=== PATIENT | male | born 1960 ===

== ENCOUNTER 2024-08-01 10:00 | Day surgery (SDC) | payer BC, SELFPAY ==
[2024-08-01 10:50] VITALS: BP 145/99; PULSE 101; RESP 20; TEMP 36.5; O2SAT 98
[2024-08-01] MEDS: Tropicam./Phenyleph. (1/2.5%) 5 ML BTL OD ×3 (10:57→11:07)
--- NOTE | 2024-08-01 11:29 | ANES.PREOP_ITS ---
General Info Date of Service Date Performed: 08/01/24 Height: 5 ft 8 in Weight: 99.79 kg Body Mass Index (BMI): 33.4 Surgical Procedure: Operation Date: 08/01/24 12:40 Proposed Procedure Side Surgeon p Cataract Extraction with IOL Implant Right Octavio Cat MD Meds Allergies and Home Medications Allergies Allergy/AdvReac Type Severity Reaction Status Date / Time hydrochlorothiazide AdvReac Intermediate Other (See Verified 08/01/24 10:49 Comment) Home Medication ?Medication ?Instructions ?Recorded amlodipine 10 mg tablet 10 mg PO DAILY 07/30/24 aspirin 81 mg tablet,delayed 81 mg PO DAILY 07/30/24 release (Adult Low Dose Aspirin) levothyroxine 50 mcg capsule 50 mcg PO DAILY 07/30/24 losartan 100 mg tablet 100 mg PO DAILY 07/30/24 omega 8-amr-vyc-fish oil 100 1 cap PO DAILY 07/30/24 mg-160 mg-1,000 mg capsule (Fish Oil) omeprazole 20 mg capsule,delayed 20 mg PO DAILY 07/30/24 release pravastatin 40 mg tablet 40 mg PO DAILY 07/30/24 Current Visit Medications: Current Medications Generic Name Dose Route Start Last Admin Trade Name Freq PRN Reason Stop Dose Admin Acetaminophen 1,000 mg 08/01/24 06:00 Acetaminophen 500 Mg Tab PO 08/31/24 05:59 Q4H PRN PRN Balanced Salt Solution 500 ml 08/01/24 06:00 Balanced Salt Soln.-Plus 500 Ml Bag OP 08/31/24 05:59 DIRECTED [facility] Miscellaneous Medication 0 ml 08/01/24 06:00 Prednisolone 1%, Moxifloxacin 0.5%, Bromfenac 0.09% 5.6ml Btl OD 08/31/24 05:59 DIRECTED [facility] Miscellaneous Medication 0 ml 08/01/24 06:00 08/01/24 11:07 Tropicam./Phenyleph. 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 Gallstone pancreatitis Impaired fasting glucose GERD (gastroesophageal reflux disease) HLD (hyperlipidemia) Essential hypertension Calcium pyrophosphate deposition disease (CPPD) Surgical History Surgical History (Updated 08/01/24 @ 10:49 by Carol Arshad RN) History of surgery right arm Hx of appendectomy Hx of colonoscopy History of cholecystectomy Tobacco Smoking/Tobacco Use Status: Former Tobacco Use Alcohol Alcohol Intake: current Alcohol intake frequency: a few times a month Substance Use Substance use: Never Substance use type: does not use Vital Signs and Lab Results Vital Signs Most Recent Vital Signs in EMR: Most Recent Vital Signs Temp Pulse Resp BP Pulse Ox 36.5 C 101 H 20 145/99 H 98 08/01/24 10:50 08/01/24 10:50 08/01/24 10:50 08/01/24 10:50 08/01/24 10:50 Vital Signs Comment Vital Signs Comment:: Repeat HR 89 Lab Results Blood Type / Crossmatch: No Data to Display Complete Blood Count: No Data to Display Complete Metabolic Panel: No Data to Display Liver Function Panel: No Data to Display Coagulation Panel: No Data to Display Cardiac Panel: No Data to Display Arterial Blood Gas: No Data to Display Venous Blood Gas: No Data to Display Pancreas Panel: No Data to Display Thyroid Panel: No Data to Display Infectious Disease: No Data to Display Blood Cultures: No Data to Display Toxicology Panel: No Data to Display Anesthesia Assessment and Plan Anesthesia History Personal History: No History of Anesthesia Complications Family History: No Family History of Anesthesia Complications Exercise Tolerance Exercise Tolerance: Metabolic Equivalents>4 Pertinent Negatives Pertinent Negatives: No Symptoms of GERD, No Major Cardiovascular Symptoms or Complaints and No Major Pulmonary Symptoms or Complaints Cardiac & Pulmonary Exam Cardiac Exam: Normal S1/S2 Heart Sounds Pulmonary Exam: Clear Bilateral Breath Sounds Implantable Cardiac Device Does patient have a Pacemaker or an ICD?: No Airway Exam Known Difficult Airway: No Mallampati Class: 3 Mouth Opening: Normal (> 3cm) Thyromental Distance: Greater than 3 cm Neck Range of Motion: Full ROM Neck Circumference: Normal Teeth Condition: Removable Dentures/Plates Upper ASA Classification ASA Score: ASA 2 Emergency Case?: No NPO Status NPO Status: NPO Clears >2 hours, Solids >8 hours Anesthesia Plan Resuscitation Status: Full Code Anesthesia Technique: MAC Anesthesia Airway Planned: Natural Airway Monitors Used: Standard Monitors
[2024-08-01 11:48] VITALS: BMI 33.4
[2024-08-01] MEDS: Tetracaine 0.5% 4 ML BTL OD (12:02)
[2024-08-01] MEDS: Povidone-Iodine Ophth 30 ML BTL (12:03)
[2024-08-01] MEDS: Duovisc Viscoelastic System EACH 1 EACH (12:08)
[2024-08-01] MEDS: Balanced Salt Soln.-PLUS 500 ML BAG OP (12:08)
[2024-08-01] MEDS: Lidocaine 1% Pres-Free 5 ML VIAL (12:09)
[2024-08-01] MEDS: Trypan Blue 0.06% 0.5 ML SYR (12:10)
[2024-08-01] MEDS: Prednisolone 1%, Moxifloxacin 0.5%, Bromfenac 0.09% 5.6ML BTL OD (12:33)
[2024-08-01 13:10] VITALS: BP 136/91; PULSE 80; RESP 18; TEMP 36.3; O2SAT 94
--- NOTE | 2024-08-01 13:14 | W.PM.DSUDISC ---
Date of service: 08/01/24 Discharge Plan Disposition Patient Disposition: Home Discharge Details Attending Provider: Octavio Cat Primary Care Provider: Unknown,Unknown Home Meds and New Rx's Prescriptions: No Action amlodipine 10 mg tablet 10 mg PO DAILY omeprazole 20 mg capsule,delayed release(DR/EC) 20 mg PO DAILY losartan 100 mg tablet 100 mg PO DAILY pravastatin 40 mg tablet 40 mg PO DAILY levothyroxine 50 mcg capsule 50 mcg PO DAILY aspirin [Adult Low Dose Aspirin] 81 mg tablet,delayed release (DR/EC) 81 mg PO DAILY Fish Oil 100-160-1,000 mg capsule 1 cap PO DAILY Discharge Instructions Stand Alone Forms: [facility] Post-Op Cataract, [address] ([facility]) Discharge Orders Discharge Orders: Discharge Order (Routine); Ordered 08/01/24 Ordered By: Octavio Cat DS: Diagnosis Discharge Diagnosis (1) Nuclear age-related cataract, right eye: Status: Resolved (2) History of vitrectomy: Status: Chronic (3) High myopia, right eye: Status: Chronic
--- NOTE | 2024-08-01 13:15 | ROE_ITS ---
Operative Note Operative Note PRE-OP DIAGNOSIS: Nuclear cataract, right eye High myopia, status post pars plana vitrectomy, right eye POST-OP DIAGNOSIS: same PROCEDURE: Cataract extraction using phacoemulsification with intraocular lens implant, right eye SURGEON: Octavio Cat ANESTHESIA TYPE: Local By Surgeon and MAC Refer to Anesthesia Record ESTIMATED BLOOD LOSS: 0 PATHOLOGY: none sent COMPLICATIONS: None Patient was transported to: same day Patient's condition: stable Implants: Case Clareon [id number] Indications: Progressive decreased vision due to cataract, right eye Procedure Description: CATARACT SURGERY OPERATIVE REPORT PREOPERATIVE DIAGNOSIS: Nuclear cataract, right eye High myopia/status post pars plana vitrectomy, right eye POSTOPERATIVE DIAGNOSIS: Same OPERATION: Cataract extraction using phacoemulsification with posterior chamber intraocular lens implant, right eye. Implantation of capsular tension ring, right eye IOL: IOL Behavioral Medical Director/Model: Case Clareon [id number] IOL Power: + 9.5 diopters IOL Serial Number: [id number] Optic Diameter: 6.0mm Haptic/Overall Diameter: 13.0mm PHACO INFO: Case TidePoolurion Vision System with OZil and Active Fluidics Cumulative Dispersed Energy (CDE): 14.41 seconds SURGEON: Octavio Cat MD, ANISH ANESTHESIA: Monitored Anesthesia Care (MAC), with local sub-tenon's anesthetic infiltration COMPLICATIONS: None SPECIMENS: None INDICATIONS FOR PROCEDURE: The patient is a 63-year-old male with a history of high myopia with axial length over 27.0 mm, who previously underwent pars plana vitrectomy with membrane peeling for a macular pucker in February 2023. He has now developed a dense nuclear cataract in the right eye and desires cataract surgery in attempt to improve and maximize his vision. The option of cataract surgery was offered to the patient and he wished to proceed. See office notes for detailed information. PROCEDURE: The correct surgical eye was identified and marked as the right eye and the pupil was dilated in the preoperative area using mydriatics and cycloplegics. The dilated pupil size was 8.0 mm. Oral sedation was administered in the form of an Imprimis MKO Melt (midazolam 3mg/ketamine 25mg/ondansetron 2mg). The patient was brought to the operating room where cardiopulmonary monitoring was instituted and surgical time-out was performed, confirming the correct operative eye and IOL power. Topical anesthesia was administered and ophthalmic povidone-iodine 5% was instil led into the conjunctival fornices. The morgan-ocular area was prepped with Betadine 10% solution and draped in the usual sterile fashion for intraocular surgery, including an aperture drape. A Tegaderm transparent film dressing was cut in half and used to cover the lashes and lid margins. Care was taken to sequester the lashes and lid margins under the Tegaderm dressing. A lid speculum was placed between the lids of the operative eye and the Case LuxOR Revalia operating microscope was maneuvered into position. Ashish scissors were then used to make a conjunctival buttonhole approximately 6mm posterior to the limbus in the inferonasal quadrant. Blunt dissection was carried out to expose bare sclera, and a blunt-tipped sub-tenon?s anesthesia cannula was introduced and passed posteriorly along the globe where non- preserved plain lidocaine was injected into posterior sub-Tenon?s space. A sideport knife was used to make a paracentesis port. VisionBlue was injected into the anterior chamber and allowed to sit for 30 seconds. Intraocular phenylephrine/lidocaine was injected into the anterior chamber. The anterior chamber was then filled with viscoelastic. A keratome knife was used to construct a two--plane clear corneal tunnel extending 2.0mm into clear cornea. A flap was raised on the anterior capsule and capsulorhexis forceps were used to complete a continuous curvilinear capsulorhexis of 5.5 mm. The capsular bag was noted to be very thin and mobile, with significant zonular laxity. Balanced salt solution was then used to perform cortical cleaving hydrodissection and nuclear hydrodelineation until the lens could be freely rotated within the capsular bag. Viscoelastic was then injected under the anterior capsular rim, inferior temporally, inferior nasally, and superior nasally. The 1.0 mm sideport knife was then used to create steeply angled corneal incisions for placement of MST capsule support hooks. 3 capsule support hooks were then carefully placed under the anterior capsular rim to support the capsular bag due to the long axial length and history of vitrectomy. The lens nucleus was then disassembled and removed within the capsular bag and iris plane using phacoemulsification. The anterior chamber was hyper deep, even with capsule support hooks in place. Residual cortical material was removed using the I/A handpiece. The posterior capsule was carefully polished to remove as much residual lens epithelial cells as safely possible. The underside of the anterior capsular rim was also polished for 360 degrees. The capsular bag was then inflated and the anterior chamber deepened with cohesive viscoelastic. A Morcher Type 15A capsular tension ring was then injected into the capsular bag without difficulty. The lens implant described above was inserted into the capsular bag using the Case Autonome Injector. A Kuglen hook was used to dial the IOL into position. The capsular support hooks were then removed. Residual viscoelastic was then removed first from posterior to the IOL, then from the anterior chamber using the I/A handpiece. The lens implant was noted to center nicely within the capsular bag. The incisions were stromally hydrated, and the anterior chamber was reformed using BSS. Miostat was then injected into the anterior chamber and the pupil was noted to come down around. Then 0.5cc of moxifloxacin 1.0mg/ml were injected into the capsular bag and anterior chamber. The incisions were checked with a Weck spear and found to be secure. Several drops of ophthalmic povidone-iodine 5% were then applied to the eye followed by two drops of combination steroid/NSAID/antibiotic solution. The drapes were removed and a clear plastic protective eye shield was placed over the eye. The patient was then returned to Same Day Surgery in stable condition. Date of Procedure: 08/01/24
[2024-08-01 13:38] VITALS: BP 131/89; PULSE 82; RESP 18; TEMP 36.4; O2SAT 95
--- NOTE | 2024-08-01 17:56 | W.ANESPOSTOP ---
Postoperative Evaluation Date, Time and Location Date Performed: 08/01/24 Time Performed: 13:12 Patient Location: Day Surgery Unit Vital Signs Most Recent Imported Vital Signs: Most Recent Vital Signs Temp Pulse Resp BP Pulse Ox 36.4 C L 82 18 131/89 95 08/01/24 13:38 08/01/24 13:38 08/01/24 13:38 08/01/24 13:38 08/01/24 13:38 Pain Score Most Recent Pain Score: Most Recent Pain Score Pain Level 0 08/01/24 13:38 Assessment Mental Status: Awake (Alert & Oriented to Patient Baseline) Airway and Respiratory Function: Patent airway with normal (patient baseline) respiratory exam Cardiovascular Function: Hemodynamically Stable Hydration Status: Adequately Hydrated Nausea & Vomiting: No Nausea or Vomiting Pain: Pt. Denies Any Pain Peripheral Nerve Block: Patient did not receive a nerve block
== END 2024-08-01 13:41 | disposition home or self-care (01) ==
LOC: SUR 10:01
PROVIDERS: Visit Provider Ophthalmology
PROC: (CPT 66982; principal; 2024-08-01 12:30)
DX: H25.11 Age-related nuclear cataract, right eye (principal); H52.11 Myopia, right eye; Z98.890 Other specified postprocedural states
CPT/HCPCS: 66982; 00123; V2632; J2003